=== PATIENT | female | born 1945 | race Caucasian/White ===

== ENCOUNTER 2023-09-29 08:09 | Day surgery (SDC) | payer MEDICARE, BC ==
[~2023-09-29] VITALS: Ht 157.5 cm; Wt 54.5 kg
[~2023-09-29 08:09] MED LIST: LEVO75TA7 PO; OLME20TA69 PO
[2023-09-29 08:40] VITALS: BP 180/83; PULSE 79; RESP 16
[2023-09-29] MEDS ORDERED: midazolam 1 mg/ML 2ml injection ONE (10:03)
[2023-09-29] MEDS ORDERED: fentaNYL/PF 50MCG/1 ML 2ML syringe ONE (10:03)
[2023-09-29] MEDS ORDERED: simethicone 40mg/0.6ml oral drops 30ml ONE (10:07)
[2023-09-29 10:19] VITALS: BP 142/70; PULSE 70; RESP 11; O2SAT 97
[2023-09-29 10:22] VITALS: BP 142/70; PULSE 70; RESP 11; O2SAT 97
[2023-09-29 10:30] VITALS: BP 129/69; PULSE 71; RESP 16; O2SAT 94
[2023-09-29 10:40] VITALS: BP 136/74; PULSE 68; RESP 13; O2SAT 96
[2023-09-29 10:50] VITALS: BP 147/74; PULSE 65; RESP 13; O2SAT 96
== END 2023-09-29 11:05 | disposition home or self-care (01) ==
LOC: GI LAB 08:09
PROVIDERS: ATTEND Internal Medicine Gastroenterology
DX: R13.10 Dysphagia, unspecified (principal); K29.50 Unspecified chronic gastritis without bleeding; Z88.0 Allergy status to penicillin; Z88.8 Allergy status to other drugs, medicaments and biological substances
CPT/HCPCS: 43239; A4620; J2250; J3010; J7030; Z7512; J2704